=== PATIENT | male | born 1945 | race Caucasian/White ===

== ENCOUNTER 2017-04-17 13:56 | Inpatient (IN) | payer MEDICARE ==
[~2017-04-17] VITALS: Ht 167.6 cm; Wt 64.0 kg
--- NOTE | 2017-04-17 16:52 | EKG ---
[facility] [address] [facility] [place] [address] Signed Normal sinus rhythm Nonspecific ST abnormality Abnormal ECG No previous ECGs available Confirmed by WOLF WIGGINS MD ([id number]) on 04/17/2017 4:51:52 PM Electronically Signed By: WOLF WIGGINS MD 04/17/171651 PATIENT NAME: LAKESHA TOTH Electrocardiogram DATE OF : 41 PHYSICIAN: WOLF WIGGINS MD REPORT #: [id number] REPORT IS CONFIDENTIAL AND NOT TO BE RELEASED WITHOUT AUTHORIZATION
--- NOTE | 2017-04-17 18:33 | NUR ---
PT ADMITTED FROM ER. SOB. ON 4L VIA ID. LR WITH 20MEQ @ 125. 18 IN RIGHT FOREARM. NO PAIN. LAST BM WAS 04/13. HEARING PROBLEMS. NO HEARING AIDS. WEARS GLASSES. DIM LUNGS. EXPIRATORY WHEEXING UPPER LEFT AND RIGHT.SATING 94%. STA. SMOKER 1-3 PACKS A DAY.CONTINUE PULSE OX.TYLONOL GIVEN @ 1500 FOR FEVER. TEMP DOWN TO 97.8.
--- NOTE | 2017-04-17 19:40 | NUR ---
RECEIVED REPORT FROM DAY SHIFT RN. PATIENT IS RESTING IN BED WITH EYES CLOSED. PULSE OX READINGS ARE WNL. CALL LIGHT IN REACH.
--- NOTE | 2017-04-17 21:38 | NUR ---
PATIENT ASSESMENT COMPLETED. PATIENT IS ON 4L VIA NC. PATIENT HAS PULSE OX IN PLACE. PATIENTS PULSE OX PROBE ON FINGER CHANGED OUT FOR NEW ONE. PATIENTS PULSE OX READINGS ARE WNL. PATIENT IS IN DROPLET PRECAUATIONS. PATIENT DENIES ANY PAIN OR SOB. PATIENT DENIES ANY NEEDS AT THIS TIME. PATIENT IS AAOX3. CALL LIGHT IN REACH.
[2017-04-17] MEDS ORDERED: ATORVASTATIN CA80 MG PO (21:55)
[2017-04-17] MEDS ORDERED: PROTONIX40 MG PO (21:57)
[2017-04-17] MEDS ORDERED: METOPROLOL TART50 MG PO (21:58)
[2017-04-17] MEDS ORDERED: ASPIR-LOW81 MG PO (21:59)
[2017-04-17] MEDS ORDERED: AMLODIPINE BES2.5 MG PO (22:00)
[2017-04-17] MEDS ORDERED: GUAIFENESIN DM S5 ML PO (22:03)
[2017-04-17] MEDS ORDERED: TRAZODONE HCL5 GM (22:03)
--- NOTE | 2017-04-17 22:47 | NUR ---
PATIENT ASSISTED TO THE BATHROOM. PATIENT IS A SBA AND TOELRATED ACTIVITY WELL. PATIENT IS UNSTEADY ON HIS FEET. PATIENT IS NOW BACK IN BED RESTING. PATIENT DENIES ANY FURTHER NEEDS CALL LIGHT IN REACH.
--- NOTE | 2017-04-17 23:42 | NUR ---
PATIENT ASSISTED TO THE RESTROOM. PATIENT HAD X1 LOOSE BM. PATIENT IS NOW BACK IN BED SITTING ON THE EDGE OF THE BED. PATIENT TOLERATED ACTIVITY WELL. PATIENT DENIED ANY SOB WITH EXERTION. PATIENT HAS A DRY, HACKING, NON-PRODUCTIVE COUGH. PATIENT DENIES ANY FURTHER NEEDS CALL LIGHT IN REACH.
--- NOTE | 2017-04-18 00:25 | NUR ---
PATIENT CALLED AND REQUESTED HELP INTO BED FROM SITTING ON THE SIDE OF THE BED. NO FURTHER NEEDS NOTED. CALL LIGHT IN REACH.
--- NOTE | 2017-04-18 00:35 | NUR ---
HELPED PT GET BACK TO BED FROM THE BATHROOM. BEDSIDE TABLE AND CALL LIGHT IN REACH. PT SAYS HE NEEDS NOTHING ELSE AT THIS TIME.
--- NOTE | 2017-04-18 02:16 | NUR ---
VITALS DONE. HIS RN GOT HIM TWO WARM BLANKETS. PT NEEDS NOTHING MORE AT THIS TIME. CALL LIGHT AND BEDSIDE TABLE WITHIN REACH.
--- NOTE | 2017-04-18 02:18 | NUR ---
PATIENTS VITALS TAKEN AND RECORDE BY MATERIAL STRESS TESTER. PATIENT GIVEN WARM BLANKET. PATIENT HAS NOT BEEN UP TO USE THE RESTROOM RECENTLY. PATIENT DENIES THE NEED TO ELIMINATE AT THIS TIME. PATIENT REFUSED TO TRY. WILL CONTINUE TO MONITOR AND ENCOURAGE. NO FURTHER NEEDS AT THIS TIME. CALL LIGHT IN REACH.
--- NOTE | 2017-04-18 03:59 | NUR ---
PATIENT IS RESTING IN BED WITH EYES CLSOED. PATIENT REMAINS ON 4L VIA NC. PULSE OX READINGS ARE WNL. CALL LIGHT IN REACH.
--- NOTE | 2017-04-18 04:45 | NUR ---
PATIENT RESTED WELL THROUGHOUT THE SHIFT. PATIENT IS ON 4L VIA NC AND HAS PULSE OX IN PLACE. PATIENT IS ON DROPLET PRECAUTIONS. PATIENT IS A SBA. PATIENT IS POARCH. PATIENT IS ON A REGULAR DIET, BUT HAS HAD A DECREASED APPETITE THE PAST FEW DAYS. PATIENT HAS A PRODUCTIVE, MOIST COUGH. PATIENT IS AAOX3 AND USES CALL LIGHT APPROPRITELY.
--- NOTE | 2017-04-18 06:48 | NUR ---
PATIENTS VITALS TAKEN AND RECORDED. PATIENT DENIES ANY NEEDS AT THIS TIME. CALL LIGHT IN REACH.
--- NOTE | 2017-04-18 07:09 | NUR ---
RECIEVED BEDSIDE REPORT FROM SUSAN VILLA. PT SLEEPING, BREATHING EVEN AND UNLABORED. BEDSIDE PULSE OX IN PLACE, O2 IN PLACE AT 4L. IV FLUIDS RUNNING.
--- NOTE | 2017-04-18 07:47 | NUR ---
ORDERED BREAKFAST WASHED HIS FACE. NOT UP TO A SHOWER RIGHT NOW WILL ASK AGAIN LATER.
--- NOTE | 2017-04-18 08:06 | NUR ---
PT UPSET ABOUT THE LOVENOX SHOT, STATED HE HATES NEEDLES AND "I'LL GET YOU BACK FOR THAT". RN EDUCATED PT ON PURPOSE OF MEDICATION.
[2017-04-18] MEDS ORDERED: TEMAZEPAM15 MG PO (11:26)
[2017-04-18] MEDS ORDERED: COMBIVENT RESPIM4 GM INH (11:28)
--- NOTE | 2017-04-18 13:11 | NUR ---
PT HAD A SHOWER WITH ACO COORDINATOR, STATES HE FEELS MUCH BETTER. PT UP IN CHAIR, FAMILY IN ROOM. BED CHANGED, PERSONAL BELONGINGS IN REACH.
--- NOTE | 2017-04-18 13:52 | NUR ---
PT'S FAMILY BROUGHT IN LIST OF MEDS ON HER PHONE. RN COPIED DOSES AND ADVISED PHARMACY. MAYUR, PHARMACIST, WILL COME DOWN AND LOOK AT LIST.
[2017-04-18] MEDS ORDERED: PERCOCET 5-3251 EACH PO (14:15)
[2017-04-18] MEDS ORDERED: NARCAN4 MG NAS (14:16)
--- NOTE | 2017-04-18 16:14 | NUR ---
pt sleeping, breathing even and unlabored. o2 in place.
--- NOTE | 2017-04-18 18:38 | NUR ---
PT REPORTS FEELING MUCH BETTER THIS SHIFT. UP TO CHAIR, UP TO SHOWER. O2 AT 4L. EATING MUCH BETTER, 100% OF BREAKFAST AND LUNCH. HAD FAMILY VISIT.
--- NOTE | 2017-04-18 19:33 | NUR ---
RECEIVED REPORT FROM DAY SHIFT RN. PATIENT IS RESTING IN BED. PATIENT COMPLAINS OF AN "UPSET STOMACH". PATIENT DENIES THE NEED FOR ANY MEDICATION AT THIS TIME. PATIENT DENIES ANY FURTHER NEEDS CALL LIGHT IN REACH.
--- NOTE | 2017-04-18 21:22 | NUR ---
PATIENT ASSESMENT COMPLETED. PATIENTS VITALS, INTAKE AND OUPUT TAKEN AND RECORDED. PATIENT DENIES ANY SOB. PATIENT TITRATED DOWN TO 2L VIA NC. PATIENTS OXYGEN SATURATION IS 95%. PATIENT DENIES ANY PAIN OR NAUSEA AT THIS TIME. PATIENT DENIES ANY FURTHER NEEDS CALL LIGHT IN REACH.
--- NOTE | 2017-04-18 23:39 | NUR ---
PATIENT ASSISTED TO THE RESTROOM. PATIENT IS A SBA. PATIENT HAD X1 BM. PATIENT IS NOW BACK IN BED RESTING. PATIENT TITRATED DOWN TO 1L VIA NC. PATIENT DENIES ANY FURTHER NEEDS AT THIS TIME. CALL LIGHT IN [facility].
--- NOTE | 2017-04-19 00:59 | NUR ---
PATIENTS OXYGEN TITRATED BACK UP TO 2L VIA NC. PATIENT DENIES ANY NEEDS AT THIS TIME. CALL LIGHT IN REACH.
--- NOTE | 2017-04-19 02:50 | NUR ---
PATIENT IS RESTING IN BED WITH EYES CLOSED. BREATHING IS EVEN AND UNLABORED. PATIENT REMAINS ON 2L VIA NC.
--- NOTE | 2017-04-19 04:20 | NUR ---
PATIENT IS RESTING IN BED WITH EYES CLOSED. PATIENT REMAINS ON 2L VIA NC. PATIENTS RR IS 17.
--- NOTE | 2017-04-19 04:29 | NUR ---
PATIENT RESTED WELL THROUGHOUT THE SHIFT. PATIENT IS ON A REG DIET AND IS TOLERATING IT WELL, APPETITE HAS INCREASED. PATIENT IS A SBA AND IS STEADY ON HIS FEET. PATIENT TITRATED DOWN TO 1L VIA NC. PATIENT DENIES SOB. PATIENT IS ON DROPLET PRECAUTIONS. PATIENT IS AAOX3 AND USES CALL LIGHT APPROPRIATELY. PATIENT HAS A DRY, NON PRODUCTIVE COUGH.
--- NOTE | 2017-04-19 05:27 | NUR ---
PATIENT TITRATE OFF OF OXYGEN TO ROOM AIR. PATIENT PLACED ON MONITOR FOR 25 MINUTES PATIENT WAS ABLE TO MAINTAIN OXYGEN SATURATION ABOVE 95% DURING THIS TIME. PATIENT WAS SPOT CHECKED DURING THE 25 MINUTES. PATIENT REMAINS IN BED RESTING WITH HIS EYES CLOSED, RR 17. CALL LIGHT IN REACH.
--- NOTE | 2017-04-19 07:47 | NUR ---
BEDSIDE REPORT FROM ALLEN DAVIS. PT RESTING IN BED ON ROOM AIR. SPOT CHECKED OXYGEN SATURATION WAS 89%, PT PLACED BACK ON 2L N.C. FOR NOW PT NOW AT 92% OXYGEN SATURATION. PT REPORTS NO NEEDS AT THIS TIME
--- NOTE | 2017-04-19 08:53 | NUR ---
PT AWAKE IN BED. TOOK PT TO BR. AM CARE. PT NOT WANTING TO TAKE SHOWER SAID HE JUST WANTS TO GO HOME AND BE SICK AT HOME.
--- NOTE | 2017-04-19 09:39 | NUR ---
PT REPORTS NO PAIN AT THIS TIME. PT ON 2L OXYGEN 97%, PT PLACED ON ROOM AIR TRIAL. AT THIS TIME 98% ON ROOM AIR SITTING AT BEDSIDE DRINKING COFFEE
[2017-04-19] MEDS ORDERED: LORATADINE10 MG PO (11:49)
[2017-04-19] MEDS ORDERED: EPIN0.3P IM (11:51)
--- NOTE | 2017-04-19 11:57 | NUR ---
MED REC COMPLETE
[2017-04-19] MEDS ORDERED: TAMIFLU6 MG/1 ML PO (12:35)
--- NOTE | 2017-04-19 13:45 | NUR ---
I.V. SITE REMOVED WNL TIP INTACT. PT EDUCATION GIVEN TO PT AND PT FRIEND HOW IS ALSO GOING TO BE ASSISTING PT WITH CARE AT HOME. PT FRIEND GIVEN MASK AND THREE MASK TO TAKE HOME FOR HIS SAFTY, ALSO EDUCATED HIM ON INFLUENZA B AND RISKS OF CONTAGION. INSTRUCTED PT TO CALL HIS DOCTOR IF HE DEVELOPES SYMPTOMS OR IS CONCERN TO POSSIBLE ORDER OF TAMIFLU. EDUCATION GIVEN TO PT AND CAREGIVER ON MEDICATION AND SIDE EFFECTS, XIOMARA FROM PHARMACY ALSO GAVE EDUCATIONS OF MEDICATIONS. PT EDUCATED ON LAST DOSE/NEXT DOSE. ACTIVITY AND FOLLOW UP APPOINTMENT TO BE MADE AND [facility] WILL CALL PT. PT HAS NO QUESTIONS AND ABLE TO VERBALIZE ALL EDUCATIONS BACK.
== END 2017-04-19 14:00 | disposition home or self-care (01) | DRG 193 ==
LOC: ED 13:56 → MS 17:13
PROVIDERS: ADMIT Internal Medicine
DX: J10.1 Influenza due to other identified influenza virus with other respiratory manifestations (principal); J96.01 Acute respiratory failure with hypoxia; F17.200 Nicotine dependence, unspecified, uncomplicated
CPT/HCPCS: 71010; 80053; 83605; 83735; 83880; 84484; 85025; 87040; 87502; 93005; 93010; 94761; 94762; 99285; 99406; J1650; J3480; J7030

== ENCOUNTER 2024-06-20 13:26 | Emergency (ER) | payer OTHER ==
[~2024-06-20] VITALS: Ht 167.6 cm; Wt 66.9 kg
[~2024-06-20 13:26] MED LIST: AMLODIPINE BES2.5 MG PO; ASPIR-LOW81 MG PO; ATORVASTATIN CA80 MG PO; COMBIVENT RESPIM4 GM INH; EPIN0.3P IM; GUAIFENESIN DM S5 ML PO; LORATADINE10 MG PO; METOPROLOL TART50 MG PO; NARCAN4 MG NAS; PERCOCET 5-3251 EACH PO; PROTONIX40 MG PO; TAMIFLU6 MG/1 ML PO; TEMAZEPAM15 MG PO; TRAZODONE HCL5 GM
[2024-06-20] MEDS ORDERED: ondansetron HCL 4 MG/2 ML VIAL IV ONE (14:00)
[2024-06-20] MEDS ORDERED: ACETAMINOPHEN 325 MG TAB PO ONE (14:00)
[2024-06-20 14:08] LABS: BASOPHILS 0.3 % (0-2); EOSINOPHILS 0.2 % (0-6); HEMATOCRIT 43.7 % (35.0-50.0); LYMPHOCYTES 8.8 % (24-44); MCH 31.2 (27-36); MCHC 34.3 g/dl (30-36); MCV 90.9 fl (81-99); MONOCYTES 4.8 % (0-12); NEUTROPHILS 85.9 % (39-80); PLATELET COUNT 250 K/uL (140-440); RBC 4.81 M/ul (4.3-5.7); RDW 14.1 (10.5-15.0)
[2024-06-20 14:19] LABS: BILIRUBIN, URINE NEGATIVE (negative); BLOOD/HGB, URINE TRACE-I (Negative); KETONE, URINE NEGATIVE (Negative); LEUK ESTERASE, URINE TRACE (negative); NITRITE, URINE NEGATIVE (negative)
[2024-06-20 14:22] LABS: ALBUMIN 3.7 g/dL (3.4-5.0); ALBUMIN/GLOBULIN RATIO 0.76 (1.1-2.4); ANION GAP 10.2 (7-21); BUN/CREATININE RATIO 13.97 (6.0-28.6); CREATININE, SERUM 1.36 mg/dL (0.70-1.30); POTASSIUM 4.2 mmol/L (3.5-5.1); PROTEIN, TOTAL 8.6 g/dL (6.4-8.2)
[2024-06-20 14:24] LABS: LACTIC ACID, BLOOD 1.6 mmol/L (0.4-2.0)
[2024-06-20 14:26] LABS: BACTERIA, URINE NONE SEEN /hpf (negative); CASTS, URINE NONE SEEN \\lpf; COLLECTION TYPE, URINE CLEAN CATCH; CRYSTALS, URINE NONE SEEN (0-1+); EPITHELIAL CELLS, URINE NONE SEEN /lpf (0-1+); REFLEX CULTURE, URINE Yes (No)
[2024-06-20 14:28] LABS: CORONAVIRUS COVID-19 AG NEGATIVE (NEGATIVE); INFLUENZA A AG NEGATIVE (NEGATIVE); INFLUENZA B AG NEGATIVE (NEGATIVE)
[2024-06-20] MEDS ORDERED: ALBUTEROL/IPRATROPIUM 3 ML NEB INH ONE (16:00)
[2024-06-20] MEDS ORDERED: SODIUM CHLORIDE 0.9% 1,000 ML IV PRN ×2 (16:15→17:45)
[2024-06-20] MEDS ORDERED: CEFTRIAXONE SODIUM 2 GM VIAL ONE (16:20)
[2024-06-20] MEDS ORDERED: CEFTRIAXONE SODIUM 2 GM in SODIUM CHLORIDE 0.9% 100 ML IV ONE (16:30)
[2024-06-20 19:28] VITALS: BP 119/40
--- NOTE | 2024-06-22 13:56 | EKG ---
[facility] [address] [facility] [place], [place] [address] Signed Sinus tachycardia Nonspecific ST abnormality Abnormal ECG When compared with ECG of 17-APR-2017 14:05, No significant change was found Confirmed by Diony Shelton MD ([id number]) on 06/22/2024 1:55:56 PM Electronically Signed By: DIONY SHELTON MD 06/22/24 1356 PATIENT NAME: LAKESHA TOTH Electrocardiogram DATE OF : 41 PHYSICIAN: DIONY SHELTON MD REPORT #: [id number] REPORT IS CONFIDENTIAL AND NOT TO BE RELEASED WITHOUT AUTHORIZATION
== END 2024-06-20 19:26 | disposition short-term general hospital (02) ==
LOC: ED 13:26
PROVIDERS: Emergency Medicine
DX: A41.9 Sepsis, unspecified organism (principal); R29.6 Repeated falls; F17.200 Nicotine dependence, unspecified, uncomplicated; Z79.82 Long term (current) use of aspirin; Z79.899 Other long term (current) drug therapy
CPT/HCPCS: 36415; 51701; 51798; 71045; 80053; 81001; 83605; 83880; 84484; 85025; 87040; 87088; 93005; 93010; 94640; 99285-25; A9270; J0696; J2405; J7030